=== PATIENT | male | born 1985 ===

== ENCOUNTER 2016-12-17 14:49 | Emergency (ER) | payer OTHER ==
[2016-12-17 14:49] VITALS: BMI 48.8
[2016-12-17 15:05] VITALS: BP 140/84; PULSE 102; RESP 18; TEMP 99.1; O2SAT 97
[2016-12-17] MEDS ORDERED: Silver Sulfadiazine 1% Cream (20 gm) TOP STA (15:46)
[2016-12-17] MEDS ORDERED: Silver Sulfadiazine 1% Cream (20 gm) ONE (15:53)
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
== END 2016-12-17 16:52 | disposition home or self-care (01) ==
LOC: C.ER 14:49
DX: T23.221A Burn of second degree of single right finger (nail) except thumb, initial encounter (principal); X11.8XXA Contact with other hot tap-water, initial encounter; X58.XXXA Exposure to other specified factors, initial encounter; Y93.E9 Activity, other interior property and clothing maintenance; Y92.009 Unspecified place in unspecified non-institutional (private) residence as the place of occurrence of the external cause

== ENCOUNTER 2017-04-15 15:10 | Emergency (ER) | payer MEDICAID, OTHER ==
[2017-04-15 15:11] VITALS: BMI 48.8
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
[2017-04-15 16:22] VITALS: BP 129/84; PULSE 83; RESP 18; TEMP 98.3
[2017-04-16 19:03] VITALS: O2SAT 100
== END 2017-04-15 16:30 | disposition home or self-care (01) ==
LOC: C.ER 15:10
DX: H00.012 Hordeolum externum right lower eyelid (principal)